=== PATIENT | male | born 1975 | race Caucasian/White ===

== ENCOUNTER 2019-02-22 12:00 | Emergency (ER) | payer OTHER ==
[2019-02-22] MEDS ORDERED: LORazepam 2 MG/ML INJ IVP ONE (12:03)
[2019-02-22] MEDS ORDERED: NS 1,000 ML IV ONE (12:03)
--- NOTE | 2019-02-22 12:06 | EDPHY ---
H & P Time Seen by Provider: 02/22/19 12:03 HPI/ROS: HPI: This is a 43-year-old male who presents with Chief Complaint: Witnessed grand mal seizure activity, head injury Location: Body, head Quality: Seizure, injury Duration: Lasting approximately 5 min Signs and Symptoms: no fever, no nausea, no vomiting, no photophobia, no noise sensitivity, no neck stiffness, no ear pain, no tinnitus, no nasal congestion, no sinus pressure, no weakness, no radiation, no aura, no headache Timing: Acute Severity: Moderate to severe Context: Patient has a history of epilepsy presents via EMS from [facility] where he had a witnessed grand mal seizure lasting approximately 5 min prior to arrival. Patient was standing up when the seizure activity occurred and he fell to the ground hitting the right side of his head on the shelf. Witness described entire body thrashing typical of grand mal type seizure. He is slightly confused but able to answer questions about his name and medical history. History of seizure disorder, was on Depakote in the past, but no seizures in the last 20 years. No tongue biting or urinary incontinence. Does not take blood thinners. Modifying Factors: None Comment: ROS: A comprehensive 10 system review of systems is otherwise negative aside from elements mentioned in the history of present illness. MEDICAL/SURGICAL/SOCIAL HISTORY: Medical history: Seizure disorder. Does not take any regular medications. Surgical history: Denies Social history: Denies alcohol, drug, tobacco use. Family history noncontributory. Lives in [place]. CONSTITUTIONAL: Patient is postictal, answering questions but slightly confused , physically fit middle-aged white male, awake and alert, no obvious distress HEENT: Atraumatic and normocephalic, PERRL, EOMI. no globe entrapment, no raccoon eyes. no Marte signs.Tympanic membranes clear. No tympanic membrane rupture. Nares patent; no septal hematoma. Oropharynx clear, no exudate and moist pink mucosa. No malocclusion. no dental trauma. Airway patent. No lymphadenopathy. NECK: Swelling noted over the right lateral neck; moderate midline tenderness, flexion 45 degrees, extension 45 degrees, right and left lateral flexion 45 degrees. No meningismus. Cardiovascular: Normal S1/S2, tachycardia, regular rhythm, without murmur rub or gallop. PULMONARY/CHEST: Symmetrical and nontender. no crepitus. Clear to auscultation bilaterally. Good air movement. No accessory muscle usage. ABDOMEN: Soft, nondistended, nontender, no ecchymosis, no rebound, no guarding , no peritoneal signs, no masses or organomegaly. No CVAT. PELVIC: no pain with rocking; bilateral hips flexion 125 degrees, extension 30 degrees, with no pain internal rotation and no pain external rotation. BACK: No midline tenderness, no paraspinous spasm, deep tendon reflexes 2/2, no pain with straight leg raise EXTREMITIES: 2/2 pulses, no deformities, no clubbing, no cyanosis or edema. NEUROLOGICAL: no focal neuro deficits. GCS 15. No seizure activity at this time. SKIN: Warm and dry, no erythema. no rash. Good capillary refill. Source: Patient, RN/MD, EMS Exam Limitations: Clinical condition Constitutional: Initial Vital Signs Heart Rate 104 H 02/22/19 12:02 Respiratory Rate 18 02/22/19 12:02 Blood Pressure 161/93 H 02/22/19 12:02 O2 Sat (%) 94 02/22/19 12:02 O2 Delivery Mode Room Air Allergies/Adverse Reactions: No Known Allergies Allergy (Unverified 02/22/19 12:46) Home Medications: Medication Instructions Recorded Stephanie Allergy 02/22/19 Divalproex ER [Depakote ER 500 MG 500 mg PO DAILY #30 tab 02/22/19 (*)] Medical Decision Making - Diagnostics EKG Interpretation: 12 lead EKG: Indication: Seizure Rhythm: Sinus tachycardia, rate of 98 beats per minute Conner: Normal Intervals: Normal QRS: Normal ST segments: Nonspecific changes T-waves: Flattened INTERPRETATION: No acute ischemic changes The 12 lead EKG was interpreted by myself and with attending. Imaging Results: Imaging Impressions Head CT 02/22/19 12:03 Impression: Normal. Results called and discussed with Saadia Foster at 02/22/2019 13:30. Cervical Spine [address] 02/22/19 12:04 Impression: 1. No acute cervical spine fracture/subluxation. 2. Unremarkable angiogram of the neck. Findings and recommendations discussed with Saadia Foster at 1332 hour, 2018. Neck CTA 02/22/19 12:12 Impression: 1. No acute cervical spine fracture/subluxation. 2. Unremarkable angiogram of the neck. Findings and recommendations discussed with Saadia Foster at 1332 hour, 2018. ED Course/Re-evaluation: Vital signs reviewed and stable upon arrival. Placed on telemetry monitor. IV access, laboratory studies, EKG, head CT, cervical CT ordered Based on nexus protocol of trauma, head CT scan ordered Based on nexus protocol of cervical midline tenderness, cervical CT scan ordered CTA neck ordered to evaluate for vessel injury EKG my read shows sinus tachycardia with rate of 98 beats per minute with nonspecific ST changes, flattened T-waves in V3 and AVF Given 1 L normal saline and IV Ativan 1 mg 1228: Notified by tech troponin 0.01 1235: Laboratory results reviewed and grossly unremarkable. 1329: Notified by Dr. Luis that head CT scan shows no acute intracranial process. 1336: Called by Dr. Higuera reports CTA neck and CT cervical shows no acute process. 1400: ED decision to consult Neurology and spoke with Dr. oCwan. He recommends Depakote extended release 500 mg daily, usual seizure precautions of no driving for minimum of 3 months, no operating heavy machinery, and follow up in the office next week. No signs of neurovascular compromise/tenting of skin/compartment syndrome/ extremities and joints examined above and below area of concern and are neurovascularly intact. This patient was seen under the supervision of my secondary supervising physician. I evaluated and cared for this patient with attending. Discussed this patient with Dr. Hernandez. Differential Diagnosis: Seizure including but not limited to electrolyte abnormality, alcohol withdrawal , medication noncompliance, head injury, and breakthrough seizure. - Data Points Laboratory Results: Laboratory Results 02/22/19 12:00 02/22/19 12:00 02/22/19 02/22/19 02/22/19 12:06 12:00 12:00 WBC 9.60 10^3/uL H 10^3/uL (3.80-9.50) RBC 5.59 10^6/uL 10^6/uL (4.40-6.38) Hgb 16.9 g/dL g/dL (13.7-17.5) Hct 51.0 % % (40.0-51.0) MCV 91.2 fL fL (81.5-99.8) MCH 30.2 pg pg (27.9-34.1) MCHC 33.1 g/dL g/dL (32.4-36.7) RDW 13.4 % % (11.5-15.2) Plt Count 271 10^3/uL 10^3/uL (150-400) MPV 10.1 fL fL (8.7-11.7) Neut % (Auto) 47.1 % % (39.3-74.2) Lymph % (Auto) 40.3 % % (15.0-45.0) Ransom % (Auto) 7.5 % % (4.5-13.0) Eos % (Auto) 3.4 % % (0.6-7.6) Baso % (Auto) 0.9 % % (0.3-1.7) Nucleat RBC Rel Count 0.0 % % (0.0-0.2) Absolute Neuts (auto) 4.51 10^3/uL 10^3/uL (1.70-6.50) Absolute Lymphs (auto) 3.87 10^3/uL H 10^3/uL (1.00-3.00) Absolute Monos (auto) 0.72 10^3/uL 10^3/uL (0.30-0.80) Absolute Eos (auto) 0.33 10^3/uL 10^3/uL (0.03-0.40) Absolute Basos (auto) 0.09 10^3/uL 10^3/uL (0.02-0.10) Absolute Nucleated RBC 0.00 10^3/uL 10^3/uL (0-0.01) Immature Gran % 0.8 % % (0.0-1.1) Immature Gran # 0.08 10^3/uL 10^3/uL (0.00-0.10) Sodium 143 mEq/L mEq/L (135-145) Potassium 4.0 mEq/L mEq/L (3.5-5.2) Chloride 104 mEq/L mEq/L (97-110) Carbon Dioxide 12 mEq/l L mEq/l (22-31) Anion Gap 27 mEq/L H mEq/L (6-14) BUN 11 mg/dL mg/dL (7-23) Creatinine 1.0 mg/dL mg/dL (0.7-1.3) Estimated GFR > 60 Glucose 85 mg/dL mg/dL (70-100) Calcium 9.6 mg/dL mg/dL (8.5-10.4) Magnesium 2.2 mg/dL mg/dL (1.6-2.3) POC Troponin I 0.01 ng/mL ng/mL (0.00-0.08) Medications Given: Discontinued Medications Sodium Chloride (Ns) 1,000 mls @ 0 mls/hr IV ONCE ONE; Wide Open PRN Reason: Protocol Stop: 02/22/19 12:04 Last Admin: 02/22/19 12:09 Dose: 1,000 mls Lorazepam (Ativan Injection) 1 mg IVP EDNOW ONE Stop: 02/22/19 12:04 Last Admin: 02/22/19 12:09 Dose: 1 mg Point of Care Test Results: Chemistry 02/22/19 12:06 POC Troponin I 0.01 ng/mL ng/mL (0.00-0.08) Departure - Departure Disposition: Home, Routine, Self-Care Clinical Impression: Seizure disorder Closed head injury without concussion Qualifiers: Encounter type: initial encounter Qualified Code(s): S09.90XA - Unspecified injury of head, initial encounter Cervical muscle strain Qualifiers: Encounter type: initial encounter Qualified Code(s): S16.1XXA - Strain of muscle, fascia and tendon at neck level, initial encounter Condition: Good Instructions: Epilepsy (ED), Head Injury (ED), Cervical Strain (ED) Additional Instructions: Take Depakote extended release 500 mg daily. You are not to drive a vehicle or operate heavy machinery until cleared by Neurology to do so. Call Neurology to make an appointment next week. You sustained a closed head injury and it is recommended that you observe concussion precautions. Please do not participate in any contact sports or moderate and strenuous activity until cleared by Neurology. Take Tylenol 650 mg every 4 hours and/or Ibuprofen 600 mg every 8 hours with food as needed for pain/headache. Consume a minimum of 8-10 glasses of water or electrolyte fluid replacement drinks that include Gatorade, Powerade, Pedialyte. You are to be closely monitored and observed for the 12 hr following initial injury time. Return to the ER immediately if you have progressive headaches, neurologic deficits, gait abnormality, visual disturbance, slurred speech, or any other symptom that concerns you. Referrals: Patient,NotPresent [Unknown] - As per Instructions Luis F Cowan MD [Medical Doctor] - As per Instructions Prescriptions: Divalproex ER [Depakote ER 500 MG (*)] 500 mg PO DAILY #30 tab
[2019-02-22 12:16] LABS: PLATELET COUNT 271 10^3/uL (150-400)
[2019-02-22] MEDS ORDERED: IOPAMIDOL (ISOVUE 370) 100 ML BTL IV ONE (12:44)
--- NOTE | 2019-02-22 13:27 | CPEKG ---
Test Reason : OPEN Blood Pressure : / mmHG Vent. Rate : 098 BPM Atrial Rate : 098 BPM P-R Int : 157 ms QRS Dur : 081 ms QT Int : 334 ms P-R-T Axes : 057 056 015 degrees QTc Int : 427 ms Sinus rhythm Confirmed by Jaydon Hernandez ([id number]) on 02/22/2019 1:27:04 PM Referred By: Jaydon Hernandez Confirmed By:Jaydon Hernandez
[2019-02-22] MEDS ORDERED: IBUPROFEN 800 MG TAB PO ONE (14:48)
[2019-02-22 14:58] VITALS: BP 141/77
[2019-02-23] MEDS ORDERED: DIVALPROEX ER 500 MG TAB PO ONE (14:19)
== END 2019-02-22 14:56 | disposition home or self-care (01) ==
DX: G40.909 Epilepsy, unspecified, not intractable, without status epilepticus (principal); S16.1XXA Strain of muscle, fascia and tendon at neck level, initial encounter; W01.198A Fall on same level from slipping, tripping and stumbling with subsequent striking against other object, initial encounter
CPT/HCPCS: 84484-ER; 96374; J2060; Q9967